=== PATIENT | male | born 1995 | race Caucasian/White ===

== ENCOUNTER 2017-04-25 12:59 | Emergency (ER) | payer BC ==
[2017-04-25 13:39] VITALS: BP 142/64
--- NOTE | 2017-04-25 14:19 | UC ---
UC General HPI - HPI Summary HPI Summary: 22 y/o male presents to the urgent care c/o of burning stomach pain and spitting after eating occasionally for the past 6 months. Pt also states he stays w/o eating for long periods of time during the day and that is when the he feels that burning pain in his stomach. then after he eats he starts spitting or burping.Pain 4/10. He also c/o red/pink spots on his suprapubic area that are not painful of itchy that appear about a months ago. Pt denies abdominal pain, blood in the stool, chest pain, urinary symptoms, Hx of STD's, N /V/D. He has not taking anything to alleviate symptoms. - History of Current Complaint Chief Complaint: UCGeneralIllness Stated Complaint: STOMACH PAIN Time Seen by Provider: 04/25/17 13:52 Hx Obtained From: Patient Onset/Duration: Gradual Onset, Lasting Weeks - 6 months, Still Present Timing: Intermittent Episodes Lasting: - 1-2 hours Onset Severity: Mild Current Severity: Moderate Pain Intensity: 4 Pain Location at: epigastric pain Associated Signs & Symptoms: Positive: Other - burping and spitting after eating. Negative: Abdominal Pain, Back Pain, Cough, Chest Pain, Dizziness, Diarrhea, Dysuria, Fever, Headache, Hematemesis, Melena, Nausea, Vomiting, Weakness - Allergy/Home Medications Allergies/Adverse Reactions: Allergies Allergy/AdvReac Type Severity Reaction Status Date / Time No Known Allergies Allergy Verified 04/25/17 13:39 PMH/Surg Hx/FS Hx/Imm Hx Previously Healthy: Yes - Pt denies PMHX - Surgical History Surgical History: Yes Surgery Procedure, Year, and Place: appy - Family History Known Family History: Positive: Hypertension - Social History Occupation: Employed Full-time Lives: With Family Alcohol Use: Weekly Substance Use Type: Marijuana Substance Use Comment - Amount & Last Used: occ usage, daily Smoking Status (MU): Never Smoked Tobacco - Immunization History Vaccination Up to Date: Yes Review of Systems Constitutional: Negative Skin: Rash - red/pink papules in the suprapubic area Eyes: Negative ENT: Negative Respiratory: Negative Cardiovascular: Negative Gastrointestinal: Abdominal Pain - epigastric burning pain Genitourinary: Negative Motor: Negative Neurovascular: Negative Musculoskeletal: Negative Neurological: Negative Psychological: Negative Is Patient Immunocompromised?: No All Other Systems Reviewed And Are Negative: Yes Physical Exam Triage Information Reviewed: Yes Appearance: Well-Appearing, No Pain Distress, Well-Nourished, Thin Vital Signs: Initial Vital Signs Temp 98.4 F 04/25/17 13:31 Pulse 79 04/25/17 13:31 Resp 14 04/25/17 13:31 BP 142/64 04/25/17 13:31 Pulse Ox 100 04/25/17 13:31 Vital Signs Reviewed: Yes Eye Exam: Normal Eyes: Positive: Conjunctiva Clear - PERRLA, EOMI ENT Exam: Normal ENT: Positive: Normal ENT inspection, Hearing grossly normal, Pharynx normal, TMs normal Dental Exam: Normal Neck exam: Normal Neck: Positive: Supple, Nontender, No Lymphadenopathy Respiratory Exam: Normal Respiratory: Positive: Chest non-tender, Lungs clear, Normal breath sounds, No respiratory distress Cardiovascular Exam: Normal Cardiovascular: Positive: RRR, No Murmur, Pulses Normal, Brisk Capillary Refill Abdomen Description: Positive: Nontender, No Organomegaly, Soft. Negative: CVA Tenderness (R), CVA Tenderness (L), Distended, Guarding, Splenomegaly Bowel Sounds: Positive: Present Musculoskeletal Exam: Normal Musculoskeletal: Positive: Strength Intact, ROM Intact, No Edema Neurological Exam: Normal Psychological Exam: Normal Skin: Positive: rashes - 3 pink small papules with umbilicated center above the suprapubic area, non tender to palpation. no swelling or exudate noted. Course/Dx - Course Course Of Treatment: 22 y/o male presents to the urgent care c/o of burning stomach pain and spitting after eating occasionally for the past 6 months. Pt also states he stays w/o eating for long periods of time during the day and that is when the he feels that burning pain in his stomach. then after he eats he starts spitting or burping.Pain 4/10. He also c/o red/pink spots on his suprapubic area that are not painful of itchy that appear about a months ago. Pt denies abdominal pain, blood in the stool, chest pain, urinary symptoms, Hx of STD's, N/V/D. He has not taking anything to alleviate symptoms.Hx obtained. Pt's jose is most likley molluscum contagiosum on axamination. Pt advised that it is a sefl limited eruption. However if more appear he should f/u with a shipping and receiving associate for cauterization. Pt's abdominal symptoms most likely GERD. Pt Rx Omeprazole PO to alleviate symptoms. Advised on dietary modifications and if not improvement of symptoms to f/u with PCP or GI DR for further management.Pt' s BP today is elevated, advised to decrease salt in diet, monitor BP, if it continues to be elevated please f/u with PCP for further management. Pt understood and agreed with plan of care. - Differential Dx - Multi-Symptom Differential Diagnoses: Aspiration, Other - peptic ulcers, duodenal ulcers, GERD , appendicitis,esophageal dismotility, STD's, allergic reastion, bed bugs, tinea crutis, molluscum contagiosum Provider Diagnoses: 1-GERD. 2-Molluscum Contagiosum. 3-Elevated BP w/o Hx of HTN Discharge - Discharge Plan Condition: Stable Disposition: HOME Prescriptions: Omeprazole CAP* [Prilosec CAP* 20 MG] 20 mg PO DAILY #60 cap. Patient Education Materials: Molluscum Contagiosum (ED), Gastroesophageal Reflux Disease (ED), Low Sodium Diet (ED) Referrals: [facility] [place] PHYSICIAN REFERRAL [Outside] No Primary Care Phys,NOPCP [Primary Care Provider] - Thien Gross MD [Medical Doctor] - If Needed Additional Instructions: 1- Please take Omeprazole as directed. Start dietary modifications as instructed. 2- If not improvement of symptoms in 1 month please f/u with a PCP from the [facility] [place] referral line or Dr Gross [employer] for further evaluation and treatment. 3- Molluscum cotagiosum is a self limiting rash. However if it spreads more please f/u with your PCP or [employer] Dist[employer] for further treatment. 4- Your BP today is elevated, please decrease salt in your diet, monitor your BP , if it continues to be elevated please f/y with your PCP for further management.
== END 2017-04-25 14:24 | disposition home or self-care (01) ==
LOC: UCCORT 12:59
DX: K21.9 Gastro-esophageal reflux disease without esophagitis (principal); B08.1 Molluscum contagiosum; R03.0 Elevated blood-pressure reading, without diagnosis of hypertension
CPT/HCPCS: 99202; G0463